=== PATIENT | female | born 1950 | race Caucasian/White ===

== ENCOUNTER 2023-02-20 12:11 | Emergency (ER) | payer MEDICARE ==
[2023-02-20] MEDS ORDERED: Ketorolac 10 MG Tab PO STA (13:09)
[2023-02-20] MEDS ORDERED: Acetaminophen 500 MG Tab PO STA (13:09)
[2023-02-20] MEDS ORDERED: traMADol 50 MG Tab PO STA (15:11)
== END 2023-02-20 15:32 | disposition home or self-care (01) ==
LOC: MW.ED 12:11
DX: M16.11 Unilateral primary osteoarthritis, right hip (principal)
CPT/HCPCS: 73502; 93971; 99284; A9270; 99283

== ENCOUNTER 2023-02-21 09:32 | Observation (INO) | payer MEDICARE ==
[2023-02-21] MEDS ORDERED: Ondansetron 4 MG/2 ML SDV IVPUSH ONE ×2 (10:06→16:53)
[2023-02-21] MEDS ORDERED: HYDROmorphone 1 MG/ML Syringe IVPUSH ONE ×3 (10:06→13:29)
[2023-02-21] MEDS ORDERED: Dexamethasone 10 MG/ML SDV IVPUSH ONE (10:09)
[2023-02-21 11:39] LABS: BASOPHILS PERCENT AUTO 0.1 % (0.0-1.5); EOSINOPHILS PERCENT AUTO 0.3 % (0.0-7.0); HEMATOCRIT 39.3 % (36.0-46.0); HEMOGLOBIN 12.6 g/dL (12.0-16.0); LYMPHOCYTES ABSOLUTE AUTO 1.4 K/uL (0.6-2.4); LYMPHOCYTES PERCENT AUTO 20.4 % (16.0-40.0); MEAN CORPUSCULAR HEMOGLOBIN 27.4 pg (27.0-32.0); MEAN CORPUSCULAR HGB CONC 32.1 g/dL (31.0-37.0); MEAN CORPUSCULAR VOLUME 85.4 fL (80.0-98.0); MONOCYTES ABSOLUTE AUTO 0.4 K/uL (0.0-0.8); MONOCYTES PERCENT AUTO 5.4 % (0.0-15.0); NEUTROPHILS ABSOLUTE AUTO 5.2 K/uL (1.4-5.7); NEUTROPHILS PERCENT AUTO 73.8 % (48.0-80.0); NRBC ABSOLUTE 0 K/uL; PLATELET COUNT,PLT 280 K/uL (150-400); WHITE BLOOD CELL COUNT,WBC 7.07 K/uL (4.0-11.0)
[2023-02-21 12:03] LABS: A/G RATIO 0.9 (0.9-1.6); ALBUMIN 3.3 g/dL (3.4-5.0); BILIRUBIN TOTAL 0.3 mg/dL (0.2-1.0); C-REACTIVE PROTEIN 0.3 mg/dL (0.00-0.90); CALCIUM 9.4 mg/dL (8.5-10.1); CARBON DIOXIDE,CO2 25.5 mmol/L (21.0-32.0); CREATININE 0.8 mg/dL (0.6-1.0); POTASSIUM,K 4.8 mmol/L (3.5-5.1); PROTEIN TOTAL,TP 7.1 g/dL (6.4-8.2)
[2023-02-21 12:04] LABS: APPEARANCE,URINE CLOUDY; BILIRUBIN,URINE NEGATIVE (NEGATIVE); COLOR,URINE YELLOW; GLUCOSE,URINE NEGATIVE (NEGATIVE); KETONES,URINE NEGATIVE (NEGATIVE); LEUKOCYTE ESTERASE,URINE SMALL (NEGATIVE); NITRITE,URINE NEGATIVE (NEGATIVE); OCCULT BLOOD,URINE TRACE-INTACT (NEGATIVE); PROTEIN,URINE NEGATIVE (NEGATIVE); UROBILINOGEN,URINE 0.2 EU/dL (<2.0)
[2023-02-21 12:11] LABS: EPITHELIAL CELLS,URINE MODERATE (NONE-FEW)
[2023-02-21 12:12] LABS: BACTERIA,URINE 1+ (NEGATIVE); MUCUS,URINE MODERATE (NONE-MOD)
[2023-02-21] MEDS ORDERED: HYDROmorphone 2 MG/ML Syringe IVPUSH ONE ×2 (13:29→16:53)
[2023-02-21 13:52] LABS: INR 0.96 (0.86-1.11); PTT,PARTIAL THROMBOPLSTIN TIME 25.9 SEC (23.9-30.7)
[2023-02-21] MEDS ORDERED: Iopamidol 755 MG/ML 500 ML Multipack Bottle IVPUSH STA (16:11)
[2023-02-21] MEDS ORDERED: Metoclopramide 10 MG/2 ML SDV IVPUSH ONE (18:32)
[2023-02-21] MEDS ORDERED: diphenhydrAMINE 50 MG/ML SDV IVPUSH ONE (18:32)
[2023-02-21] MEDS ORDERED: Ketorolac 30 MG/ML SDV IVPUSH PRN (22:31)
[2023-02-21] MEDS ORDERED: HYDROmorphone 2 MG/ML Syringe ONE (22:32)
[2023-02-21] MEDS ORDERED: Acetaminophen 325 MG Tab PO PRN (22:34)
[2023-02-21] MEDS ORDERED: Ondansetron 4 MG/2 ML SDV IVPUSH PRN (22:34)
[2023-02-21] MEDS ORDERED: oxyCODONE 5 MG Tab PO PRN (22:34)
[2023-02-21] MEDS ORDERED: Ibuprofen 600 MG Tab PO PRN (22:34)
[2023-02-21] MEDS: HYDROmorphone 1 MG/ML Syringe IVPUSH PRN (22:43)
[2023-02-21] MEDS ORDERED: Metoclopramide 10 MG/2 ML SDV IVPUSH SCH (23:30)
[2023-02-21] MEDS: Metoclopramide 10 MG/2 ML SDV IVPUSH PRN (23:38)
[2023-02-22 06:08] LABS: BASOPHILS PERCENT AUTO 0.1 % (0.0-1.5); HEMOGLOBIN 12.5 g/dL (12.0-16.0); LYMPHOCYTES ABSOLUTE AUTO 1.2 K/uL (0.6-2.4); LYMPHOCYTES PERCENT AUTO 13.6 % (16.0-40.0); MEAN CORPUSCULAR HEMOGLOBIN 26.8 pg (27.0-32.0); MEAN CORPUSCULAR HGB CONC 31.3 g/dL (31.0-37.0); MEAN CORPUSCULAR VOLUME 85.8 fL (80.0-98.0); MONOCYTES ABSOLUTE AUTO 0.6 K/uL (0.0-0.8); MONOCYTES PERCENT AUTO 6.6 % (0.0-15.0); NEUTROPHILS ABSOLUTE AUTO 7.2 K/uL (1.4-5.7); NEUTROPHILS PERCENT AUTO 79.7 % (48.0-80.0); NRBC ABSOLUTE 0 K/uL; PLATELET COUNT,PLT 315 K/uL (150-400); RED BLOOD CELL COUNT 4.66 M/uL (4.30-5.90); WHITE BLOOD CELL COUNT,WBC 9.05 K/uL (4.0-11.0)
[2023-02-22 06:34] LABS: CALCIUM 9.3 mg/dL (8.5-10.1); CARBON DIOXIDE,CO2 26.1 mmol/L (21.0-32.0); CREATININE 0.9 mg/dL (0.6-1.0); EST CRCL DRUG DOSING (CG) 41.78 mL/min; POTASSIUM,K 5.2 mmol/L (3.5-5.1)
[2023-02-22] MEDS: HYDROmorphone 1 MG/ML Syringe IVPUSH PRN ×3 (08:39→19:49)
[2023-02-22] MEDS: Metoclopramide 10 MG/2 ML SDV IVPUSH PRN (12:24)
[2023-02-22] MEDS ORDERED: predniSONE 20 MG Tab PO ONE (17:12)
[2023-02-22] MEDS: Acetaminophen 325 MG Tab PO SCH ×2 (17:56→23:51)
[2023-02-22] MEDS: Ibuprofen 600 MG Tab PO SCH ×2 (17:57→23:51)
[2023-02-22] MEDS: Pantoprazole 40 MG Tab.CR PO SCH (18:17)
[2023-02-23] MEDS: HYDROmorphone 1 MG/ML Syringe IVPUSH PRN ×3 (01:10→11:01)
[2023-02-23] MEDS: Metoclopramide 10 MG/2 ML SDV IVPUSH PRN (01:10)
[2023-02-23] MEDS: Acetaminophen 325 MG Tab PO SCH (05:53)
[2023-02-23] MEDS: Ibuprofen 600 MG Tab PO SCH (05:55)
[2023-02-23] MEDS: Pantoprazole 40 MG Tab.CR PO SCH (08:43)
== END 2023-02-23 11:10 | disposition home or self-care (01) ==
LOC: MW.ED 09:32 → MW.MS 21:38
PROVIDERS: ADMIT Internal Medicine; ATTEND Internal Medicine
DX: M79.604 Pain in right leg (principal); M51.26 Other intervertebral disc displacement, lumbar region; E66.9 Obesity, unspecified; K80.20 Calculus of gallbladder without cholecystitis without obstruction; M48.061 Spinal stenosis, lumbar region without neurogenic claudication; M47.816 Spondylosis without myelopathy or radiculopathy, lumbar region; Z68.41 Body mass index [BMI] 40.0-44.9, adult; Z79.899 Other long term (current) drug therapy; Z98.890 Other specified postprocedural states
CPT/HCPCS: 36415; 72131; 72148; 72192; 73706; 73721; 80048; 80053; 81001; 85025; 85610; 85730; 86140; 93925; 96374; 96375; 96376; 97110; 97161; 97530; 99285; A9270; J1100; J1170; J1200; J2405; J2765; Q9967; 99284; G0378